=== PATIENT | male | born 1990 | race American Indian/Alaskan Native ===

== ENCOUNTER 2023-04-10 15:43 | Emergency (ER) | payer MEDICAID, OTHER ==
[~2023-04-10] VITALS: Ht 177.8 cm; Wt 85.1 kg
[~2023-04-10 15:43] MED LIST: IBUPROFEN600 MG PO; NORCO 5-325 TA1 EACH PO
[2023-04-10] MEDS ORDERED: AMOX TR-K CLV1 EAC1 PO (16:42)
[2023-04-10 16:51] VITALS: BP 118/88
== END 2023-04-10 16:51 | disposition home or self-care (01) ==
LOC: ED 15:43
DX: S61.244A Puncture wound with foreign body of right ring finger without damage to nail, initial encounter (principal); F17.200 Nicotine dependence, unspecified, uncomplicated; W45.8XXA Other foreign body or object entering through skin, initial encounter
CPT/HCPCS: 99283